=== PATIENT | female | born 1945 | race Caucasian/White ===

== ENCOUNTER → 2022-09-14 12:56 | Outpatient (BNVA) | payer OTHER, SELFPAY | PROVIDERS: PCP Neurological Surgery; Visit Provider Psychiatry & Neurology Neurology | DX: F03.90 Unspecified dementia, unspecified severity, without behavioral disturbance, psychotic disturbance, mood disturbance, and anxiety (principal); R41.89 Other symptoms and signs involving cognitive functions and awareness; R46.89 Other symptoms and signs involving appearance and behavior | CPT/HCPCS: 99202 ==

== ENCOUNTER 2022-10-03 13:35 | Outpatient (REF) | payer OTHER, SELFPAY ==
--- NOTE | ~2022-10-03 | MR_ITS ---
EXAMINATION: MR BRAIN WITHOUT CONTRAST CLINICAL INFORMATION: Other symptoms and signs involving cognitive function and awareness. COMPARISON: None available. TECHNIQUE: Multiplanar, multisequence imaging of the brain was performed without intravenous contrast. FINDINGS: There is no acute infarction, hemorrhage, mass, or extra-axial fluid collection. Moderate T2/FLAIR hyperintensity seen throughout the cerebral white matter, most typical of chronic microangiopathy. There is a chronic lacunar infarcts within the bilateral basal ganglia, left thalamus, and left cerebellum. Some prominent arachnoid granulations are seen along the occipital bone. A mild degree of brain parenchymal volume loss is seen with commensurate prominence of ventricles and sulci. There is no hydrocephalus. The major arterial flow voids are preserved at the skull base. Moderate degenerative changes are seen within the spine. There is mild to moderate spinal canal stenosis at the C4-C5 level related to disc osteophyte complex. The extracranial structures are within normal limits. MR/MR head/brain wo con IMPRESSION: No acute infarct, mass lesion, intracranial hemorrhage, or evidence of hydrocephalus. Chronic lacunar infarcts seen within the bilateral basal ganglia, left thalamus, and left cerebellum. Background changes of moderate chronic microangiopathy.
== END 2022-10-03 13:36 | disposition home or self-care (01) ==
LOC: HO.MRI 13:35
PROVIDERS: Visit Provider Psychiatry & Neurology Neurology
DX: R41.89 Other symptoms and signs involving cognitive functions and awareness (principal); R46.89 Other symptoms and signs involving appearance and behavior
CPT/HCPCS: 70551

== ENCOUNTER → 2022-12-04 08:14 | Outpatient (BNVA) | payer OTHER, SELFPAY | PROVIDERS: PCP Neurological Surgery; Visit Provider Nurse Practitioner Family | DX: F03.90 Unspecified dementia, unspecified severity, without behavioral disturbance, psychotic disturbance, mood disturbance, and anxiety (principal); R41.89 Other symptoms and signs involving cognitive functions and awareness; R46.89 Other symptoms and signs involving appearance and behavior | CPT/HCPCS: 99212 ==

== ENCOUNTER → 2023-01-03 19:30 | Outpatient (REF) | payer OTHER, SELFPAY | LOC: HO.SL 19:30 | PROVIDERS: Visit Provider Nurse Practitioner Family | DX: R06.83 Snoring (principal); G47.33 Obstructive sleep apnea (adult) (pediatric); G47.00 Insomnia, unspecified; E11.9 Type 2 diabetes mellitus without complications; F03.90 Unspecified dementia, unspecified severity, without behavioral disturbance, psychotic disturbance, mood disturbance, and anxiety; R41.89 Other symptoms and signs involving cognitive functions and awareness; R46.89 Other symptoms and signs involving appearance and behavior; I11.0 Hypertensive heart disease with heart failure; I50.9 Heart failure, unspecified; J44.9 Chronic obstructive pulmonary disease, unspecified | CPT/HCPCS: 95810 ==

== ENCOUNTER → 2023-02-07 08:54 | Outpatient (BNVA) | payer OTHER, SELFPAY | PROVIDERS: PCP Neurological Surgery; Visit Provider Nurse Practitioner Family | DX: G47.33 Obstructive sleep apnea (adult) (pediatric) (principal); G47.19 Other hypersomnia; R41.89 Other symptoms and signs involving cognitive functions and awareness; F03.90 Unspecified dementia, unspecified severity, without behavioral disturbance, psychotic disturbance, mood disturbance, and anxiety | CPT/HCPCS: 99212 ==

== ENCOUNTER 2023-04-23 14:29 | Outpatient (AMB) | payer OTHER, SELFPAY ==
[2023-04-23 14:30] VITALS: BP 118/62; PULSE 75; O2SAT 95; BMI 32.1
--- NOTE | 2023-04-23 14:30 | A.OFFVIS_ITS ---
Intake Vital Signs 04/23/23 14:30 Height 4 ft 11 in Weight 159 lb BMI 32.1 BP 118/62 Blood Pressure Location Lt brachial Position Sitting Pulse 75 Pulse Source Pulse Oximeter Pulse Oximetry (%) 95 Oxygen Delivery Method Room Air Intake Visit Reasons: 2m follow up dementia - Confirmed Intake Note: Pt presents as a 2 month f/u for dementia. Senior Cyber Intelligence Analyst Required: No Senior Cyber Intelligence Analyst Name: Daughter Accompanied by: Daughter Allergies No Known Allergies Allergy (Verified 04/23/23 14:35) HPI HPI Comments History of Present Illness Details 77 y/o female patient presents with her daughter for follow up of dementia. Pt's daughter reports that patient's cognitive function is a little better, feels more alert. She still has trouble remembering people, focusing, loses way easily (does not drive), loses things in her house, needs help with medications. She has visiting nurse and manages her medication, visit her house in the morning, 7 days a week. Pt goes to day program, from 8 am to 2:30 pm, but does not like to go. Pt is dependant on most ADLs Pt is on donepezil 10 mg and memantine 7 mg daily. Denies side effects. The PSG result was significant for mild degree of sleep apnea with increased severity in REM sleep. The AHI was 13/hr, REM AHI was 27/hr and oxygen momo was 80%. She started at APAP [id number]. Pt use it but only one hour at night. She feels more rested and sleeps well with CPAP, but having difficulty to manage the CPAP mask strap, it is hard to put back on after using bathroom. [facility] Medical History Asthma Breast cancer COPD (chronic obstructive pulmonary disease) Depression Diabetes Heart failure HTN (hypertension) Hyperlipidemia Insomnia Tobacco abuse Surgical History (Updated 04/23/23 @ 14:38 by Melissa Baker CMA) S/P eye surgery Family History Father Cancer Mother Cancer Social History (Updated 04/23/23 @ 14:39 by Melissa Baker CMA) Alcohol intake: former Patient Tobacco Use Status: Former Tobacco user Review of Systems Const All systems reviewed & are unremarkable except as noted in HPI and below Physical Exam Vital Signs: Last Vital Signs Pulse 75 04/23/23 14:30 BP 118/62 04/23/23 14:30 Pulse Ox 95 04/23/23 14:30 Oxygen Delivery Method Room Air 04/23/23 14:30 BMI result Body Mass Index 32.1 Const General: cooperative, comfortable and no acute distress Nutritional Appearance: average body habitus Limitations: no limitations HEENT Head: Yes normal to inspection Neuro General: tone normal, moves all extremities and no focal motor deficits Cranial nerves: Yes Bilaterally intact EOM present, Yes Nystagmus not present, Yes Normal facial strength present, Yes Midline tongue present and Yes Ability to bilaterally elevate shoulders present Cognition (Neuro): abnormal cognition Gait exam (Neuro): Antalgic gait present Motor exam (neuro): 5/5 motor strength present throughout and Normal motor muscle tone present throughout Deep tendon reflexes (DTR's): Right triceps reflex intensity grade: 2+, Left triceps reflex intensity grade: 2+, Rt Biceps (C5, C6): 2+, Left biceps reflex intensity grade: 2+, Right brachioradialis reflex intensity grade: 2+, Left brachioradialis reflex intensity grade: 2+, Right patellar reflex intensity grade: 2+ and Left patellar reflex intensity grade: 0 Assessment & Plan Assessment & Plan (1) Cognitive and behavioral changes: Code(s): R41.89 - Other symptoms and signs involving cognitive functions and awareness; R46.89 - Other symptoms and signs involving appearance and behavior (2) NEVILLE (obstructive sleep apnea): Code(s): G47.33 - Obstructive sleep apnea (adult) (pediatric) (3) Dementia: Comment: ? mixed or vascular Code(s): F03.90 - Unspecified dementia, unspecified severity, without behavioral disturbance, psychotic disturbance, mood disturbance, and anxiety Plan Advised patient to continue to take donepezil to 10 mg qHS. Increase memantine 14 mg daily. Continue to use APAP [id number]. Stressed compliance, use CPAP nightly and more than 4 hours. Discussed about compliance with medications and decrease risk factors. Medications: New memantine 14 mg PO DAILY 30 days 30 ea 3RF Discontinued memantine Discontinued Reason: Doctor's Order 7 mg PO DAILY 30 days 30 ea 1RF Coding Level of Care Code Est Pt Level 4 (55923) Diagnoses Cognitive and behavioral changes R41.89; R46.89 NEVILLE (obstructive sleep apnea) G47.33 Dementia F03.90
== END 2023-04-23 15:03 | disposition home or self-care (01) ==
PROVIDERS: Visit Provider Nurse Practitioner Family
DX: R41.89 Other symptoms and signs involving cognitive functions and awareness (principal); G47.33 Obstructive sleep apnea (adult) (pediatric); F03.90 Unspecified dementia, unspecified severity, without behavioral disturbance, psychotic disturbance, mood disturbance, and anxiety
CPT/HCPCS: 99214

== ENCOUNTER → 2023-04-23 14:29 | Outpatient (BNVA) | payer OTHER, SELFPAY | PROVIDERS: Visit Provider Nurse Practitioner Family | DX: R41.89 Other symptoms and signs involving cognitive functions and awareness (principal); R46.89 Other symptoms and signs involving appearance and behavior; G47.33 Obstructive sleep apnea (adult) (pediatric); F03.90 Unspecified dementia, unspecified severity, without behavioral disturbance, psychotic disturbance, mood disturbance, and anxiety | CPT/HCPCS: 99212 ==

== ENCOUNTER 2023-06-26 08:01 | Outpatient (AMB) | payer OTHER, SELFPAY ==
--- NOTE | 2023-06-26 08:06 | A.OFFVIS_ITS ---
Intake Vital Signs 06/26/23 08:13 Weight 156 lb 4 oz BP 130/80 Blood Pressure Location Lt brachial Position Sitting Pulse 66 Pulse Source Pulse Oximeter Pulse Oximetry (%) 96 Oxygen Delivery Method Room Air Intake Visit Reasons: f/u appt to requalify for CPAP - Confirmed Intake Note: Requalify for cpap Associate Civil Engineer Required: Yes Associate Civil Engineer Name: Yael daughter Allergies No Known Allergies Allergy (Verified 06/26/23 08:07) HPI HPI Comments History of Present Illness Details 77 y/o female patient presents for requa lify CPAP therapy to treat NEVILLE. The PSG result was significant for mild degree of sleep apnea with increased severity in REM sleep. The AHI was 13/hr, REM AHI was 27/hr and oxygen momo was 80%. She started at APAP [id number]. Pt states that her CPAP did not work, and fixed recently. Pt reports she was anxious with full face mask and did not use it consistently. PT also having difficulty to manage the CPAP mask strap at night and it is hard to put back on after using bathroom. Pt uses CPAP occasionally, but only one hour at night. However, pt feels more rested and sleeps well with CPAP, but Pt's daughter states that patient sleeps throughout the day, and not sleeping well at night. [facility] Medical History Insomnia Asthma Depression Hyperlipidemia Diabetes HTN (hypertension) Tobacco abuse COPD (chronic obstructive pulmonary disease) Heart failure Breast cancer Surgical History S/P eye surgery Family History Father Cancer Mother Cancer Social History (Updated 06/26/23 @ 08:13 by Tavia Manley CMA) Alcohol intake: former Patient Tobacco Use Status: Current everyday Tobacco user Review of Systems Const All systems reviewed & are unremarkable except as noted in HPI and below Physical Exam Vital Signs: Last Vital Signs Pulse 66 06/26/23 08:13 BP 130/80 06/26/23 08:13 Pulse Ox 96 06/26/23 08:13 Oxygen Delivery Method Room Air 06/26/23 08:13 Const General: cooperative, comfortable and no acute distress Nutritional Appearance: average body habitus Limitations: no limitations HEENT Head: Yes normal to inspection Neuro General: tone normal, moves all extremities and no focal motor deficits Cranial nerves: Yes Bilaterally intact EOM present, Yes Nystagmus not present, Yes Normal facial strength present, Yes Midline tongue present and Yes Ability to bilaterally elevate shoulders present Cognition (Neuro): abnormal cognition Gait exam (Neuro): Antalgic gait present Motor exam (neuro): 5/5 motor strength present throughout and Normal motor muscl e tone present throughout Deep tendon reflexes (DTR's): Right triceps reflex intensity grade: 2+, Left triceps reflex intensity grade: 2+, Rt Biceps (C5, C6): 2+, Left biceps reflex intensity grade: 2+, Right brachioradialis reflex intensity grade: 2+, Left brachioradialis reflex intensity grade: 2+, Right patellar reflex intensity grade: 2+ and Left patellar reflex intensity grade: 0 Assessment & Plan Assessment & Plan (1) Cognitive and behavioral changes: Code(s): R41.89 - Other symptoms and signs involving cognitive functions and awareness; R46.89 - Other symptoms and signs involving appearance and behavior (2) NEVILLE (obstructive sleep apnea): Code(s): G47.33 - Obstructive sleep apnea (adult) (pediatric) (3) Dementia: Comment: ? mixed or vascular Code(s): F03.90 - Unspecified dementia, unspecified severity, without behavioral disturbance, psychotic disturbance, mood disturbance, and anxiety Plan Advised patient to continue to take donepezil to 10 mg qHS. Pt wants to try CPAP again. Continue to use APAP [id number]. Advised patient to try to use CPAP when she is awake to get used to it, and use it when she takes a nap. Still, patient has good clinical effects from using CPAP. Stressed compliance, use CPAP nightly and more than 4 hours. Discussed about compliance with medications and decrease risk factors. Coding Level of Care Code Est Pt Level 3 (58578) Diagnoses Cognitive and behavioral changes R41.89; R46.89 NEVILLE (obstructive sleep apnea) G47.33 Dementia F03.90
[2023-06-26 08:13] VITALS: BP 130/80; PULSE 66; O2SAT 96
== END 2023-06-26 08:40 | disposition home or self-care (01) ==
PROVIDERS: PCP Neurological Surgery; Visit Provider Nurse Practitioner Family
DX: F03.918 Unspecified dementia, unspecified severity, with other behavioral disturbance (principal); R41.89 Other symptoms and signs involving cognitive functions and awareness; G47.33 Obstructive sleep apnea (adult) (pediatric)
CPT/HCPCS: 99213

== ENCOUNTER → 2023-06-26 08:01 | Outpatient (BNVA) | payer OTHER, SELFPAY | PROVIDERS: PCP Neurological Surgery; Visit Provider Nurse Practitioner Family | DX: G47.33 Obstructive sleep apnea (adult) (pediatric) (principal); R41.89 Other symptoms and signs involving cognitive functions and awareness; F03.90 Unspecified dementia, unspecified severity, without behavioral disturbance, psychotic disturbance, mood disturbance, and anxiety; Z79.899 Other long term (current) drug therapy | CPT/HCPCS: 99212 ==

== ENCOUNTER 2023-08-29 09:26 | Outpatient (AMB) | payer OTHER, SELFPAY ==
--- NOTE | 2023-08-29 09:45 | A.OFFVIS_ITS ---
Intake Vital Signs 08/29/23 09:46 Height 4 ft 11 in Weight 156 lb BMI 31.5 BP 126/84 Blood Pressure Location Rt brachial Position Sitting Intake Visit Reasons: Follow Up for dementia/ Confirmed granddaughter Intake Note: Patient presents for follow up dementia. Allergies No Known Allergies Allergy (Verified 08/29/23 09:47) HPI HPI Comments History of Present Illness Details 77 y/o female patient presents for follo w up of NEVILLE on CPAP and memory loss. Pt's in lab sleep study scheduled on 09/10/23 for CPAP re-qualification. Pt admitted to hospitalized for 5 days for RSV. Pt states that she restart using CPAP, feels much better to breath and sleeps well. She stopped smoking, used to smoke cigarette 2ppd. The CPAP compliance and therapy response (07/30/23-08/28/23) reviewed. She is on APAP [id number]. The usage days 50% and the average usage hours 4 hrs 30 min. The max pressure was 8.9 and the residual AHI was 4.3/hr. She is memantine 21 mg, and she can think clear, and memory has improved. [facility] Medical History Insomnia Asthma Depression Hyperlipidemia Diabetes HTN (hypertension) Tobacco abuse COPD (chronic obstructive pulmonary disease) Heart failure Breast cancer Surgical History S/P eye surgery Family History Father Cancer Mother Cancer Social History Alcohol intake: former Patient Tobacco Use Status: Current everyday Tobacco user Review of Systems Const All systems reviewed & are unremarkable except as noted in HPI and below Physical Exam Vital Signs: Last Vital Signs BP 126/84 08/29/23 09:46 BMI result Body Mass Index 31.5 Const General: cooperative, comfortable and no acute distress Nutritional Appearance: average body habitus Limitations: no limitations HEENT Head: Yes normal to inspection Neuro General: tone normal, moves all extremities and no focal motor deficits Cranial nerves: Yes Bilaterally intact EOM present, Yes Nystagmus not present, Yes Normal facial strength present, Yes Midline tongue present and Yes Ability to bilaterally elevate shoulders present Cognition (Neuro): abnormal cognition Gait exam (Neuro): Antalgic gait present Motor exam (neuro): 5/5 motor strength present throughout and Normal motor muscle tone present throughout Deep tendon reflexes (DTR's): Right triceps reflex intensity grade: 2+, Left triceps reflex intensity grade: 2+, Rt Biceps (C5, C6): 2+, Left biceps reflex intensity grade: 2+, Right brachioradialis reflex intensity grade: 2+, Left brachioradialis reflex intensity grade: 2+, Right patellar reflex intensity grade: 2+ and Left patellar reflex intensity grade: 0 Assessment & Plan Assessment & Plan (1) Cognitive and behavioral changes: Code(s): R41.89 - Other symptoms and signs involving cognitive functions and awareness; R46.89 - Other symptoms and signs involving appearance and behavior (2) NEVILLE (obstructive sleep apnea): Code(s): G47.33 - Obstructive sleep apnea (adult) (pediatric) (3) Dementia: Comment: ? mixed or vascular Code(s): F03.90 - Unspecified dementia, unspecified severity, without behavioral disturbance, psychotic disturbance, mood disturbance, and anxiety Plan Advised patient to continue to take donepezil to 10 mg qHS. Continue to use APAP [id number] as patient experiences good clinical effects, sleep quality has improved. Stressed compliance, use CPAP nightly and more than 4 hours. Increase memantine to 28 mg daily. Discussed about compliance with medications and decrease risk factors. Medications: New memantine 28 mg PO DAILY 90 ea 3RF 90 days Discontinued memantine Discontinued Reason: Doctor's Order 21 mg PO DAILY 30 days 30 ea 3RF Coding Level of Care Code Est Pt Level 4 (12958) Diagnoses Cognitive and behavioral changes R41.89; R46.89 NEVILLE (obstructive sleep apnea) G47.33 Dementia F03.90
[2023-08-29 09:46] VITALS: BP 126/84; BMI 31.5
== END 2023-08-29 10:07 | disposition home or self-care (01) ==
PROVIDERS: PCP Neurological Surgery; Visit Provider Nurse Practitioner Family
DX: F03.918 Unspecified dementia, unspecified severity, with other behavioral disturbance (principal); R41.89 Other symptoms and signs involving cognitive functions and awareness; G47.33 Obstructive sleep apnea (adult) (pediatric)
CPT/HCPCS: 99214

== ENCOUNTER → 2023-08-29 09:26 | Outpatient (BNVA) | payer OTHER, SELFPAY | PROVIDERS: PCP Neurological Surgery; Visit Provider Nurse Practitioner Family | DX: F03.90 Unspecified dementia, unspecified severity, without behavioral disturbance, psychotic disturbance, mood disturbance, and anxiety (principal); R41.89 Other symptoms and signs involving cognitive functions and awareness; R46.89 Other symptoms and signs involving appearance and behavior; G47.33 Obstructive sleep apnea (adult) (pediatric) | CPT/HCPCS: 99212 ==

== ENCOUNTER 2023-11-07 09:26 | Outpatient (AMB) | payer OTHER, SELFPAY ==
--- NOTE | 2023-11-07 09:44 | A.OFFVIS_ITS ---
Intake Vital Signs 11/07/23 09:50 Height 4 ft 11 in Weight 145 lb 4 oz BMI 29.3 BP 130/80 Blood Pressure Location Lt brachial Position Sitting Pulse 69 Pulse Source Pulse Oximeter Pulse Oximetry (%) 96 Oxygen Delivery Method Room Air Intake Visit Reasons: 4 mnts f/u for Sleep - CONF Intake Note: Patient presents for 4 month f/u. speech is delay and drags and very confuse at times Allergies No Known Allergies Allergy (Verified 11/07/23 09:48) HPI HPI Comments History of Present Illness Details 77 y/o female patient presents for follo w up of NEVILLE on CPAP and memory loss. Memantine increased to 28 mg at the last visit, no side effects. Pt's daughter reports that patient memory is stable, but still has some confusion. Pt's daughter found that patient takes NyQuil during daytime, and locked the medication box. 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 Pt states that she restart using CPAP, feels much better to breath and sleeps well, but forget to put it at night sometimes. She stopped smoking, used to smoke cigarette 2ppd. The CPAP compliance and therapy response (08/07/23-11/04/23) reviewed. She is on APAP [id number]. The usage days 66 % and the average usage hours 6 hrs 40 min. The max pressure was 9.1 and the residual AHI was 4.4/hr. [facility] Medical History Insomnia Asthma Depression Hyperlipidemia Diabetes HTN (hypertension) Tobacco abuse COPD (chronic obstructive pulmonary disease) Heart failure Breast cancer Surgical History S/P eye surgery Family History Father Cancer Mother Cancer Social History Alcohol intake: former Patient Tobacco Use Status: Current everyday Tobacco user Review of Systems Const All systems reviewed & are unremarkable except as noted in HPI and below Physical Exam Vital Signs: Last Vital Signs Pulse 69 11/07/23 09:50 BP 130/80 11/07/23 09:50 Pulse Ox 96 11/07/23 09:50 Oxygen Delivery Method Room Air 11/07/23 09:50 BMI result Body Mass Index 29.3 Const General: cooperative, comfortable and no acute distress Nutritional Appearance: average body habitus Limitations: no limitations HEENT Head: Yes normal to inspection Neuro General: tone normal, moves all extremities and no focal motor deficits Cranial nerves: Yes Bilaterally intact EOM present, Yes Nystagmus not present, Yes Normal facial strength present, Yes Midline tongue present and Yes Ability to bilaterally elevate shoulders present Cognition (Neuro): abnormal cognition Gait exam (Neuro): Antalgic gait present Motor exam (neuro): 5/5 motor strength present throughout and Normal motor muscle tone present throughout Deep tendon reflexes (DTR's): Right triceps reflex intensity grade: 2+, Left triceps reflex intensity grade: 2+, Rt Biceps (C5, C6): 2+, Left biceps reflex intensity grade: 2+, Right brachioradialis reflex intensity grade: 2+, Left brachioradialis reflex intensity grade: 2+, Right patellar reflex intensity grade: 2+ and Left patellar reflex intensity grade: 0 Assessment & Plan Assessment & Plan (1) Cognitive and behavioral changes: Code(s): R41.89 - Other symptoms and signs involving cognitive functions and awareness; R46.89 - Other symptoms and signs involving appearance and behavior (2) NEVILLE (obstructive sleep apnea): Code(s): G47.33 - Obstructive sleep apnea (adult) (pediatric) (3) Dementia: Comment: ? mixed or vascular Code(s): F03.90 - Unspecified dementia, unspecified severity, without behavioral disturbance, psychotic disturbance, mood disturbance, and anxiety Plan Advised patient to continue to take donepezil to 10 mg qH, and memantine to 28 mg daily. Continue to use APAP [id number] as patient experiences good clinical effects, sleep quality has improved. Stressed compliance, use CPAP nightly and more than 4 hours. Discussed about compliance with medications and decrease risk factors. Coding Level of Care Code Est Pt Level 4 (55325) Diagnoses Cognitive and behavioral changes R41.89; R46.89 NEVILLE (obstructive sleep apnea) G47.33 Dementia F03.90
[2023-11-07 09:50] VITALS: BP 130/80; PULSE 69; O2SAT 96; BMI 29.3
== END 2023-11-07 10:11 | disposition home or self-care (01) ==
PROVIDERS: PCP Neurological Surgery; Visit Provider Nurse Practitioner Family
DX: F03.90 Unspecified dementia, unspecified severity, without behavioral disturbance, psychotic disturbance, mood disturbance, and anxiety (principal); R41.89 Other symptoms and signs involving cognitive functions and awareness; G47.33 Obstructive sleep apnea (adult) (pediatric)
CPT/HCPCS: 99214

== ENCOUNTER → 2023-11-07 09:26 | Outpatient (BNVA) | payer OTHER, SELFPAY | PROVIDERS: PCP Neurological Surgery; Visit Provider Nurse Practitioner Family | DX: R41.89 Other symptoms and signs involving cognitive functions and awareness (principal); R46.89 Other symptoms and signs involving appearance and behavior; G47.33 Obstructive sleep apnea (adult) (pediatric); F03.90 Unspecified dementia, unspecified severity, without behavioral disturbance, psychotic disturbance, mood disturbance, and anxiety | CPT/HCPCS: 99212 ==

== ENCOUNTER 2024-07-04 13:43 | Outpatient (AMB) | payer OTHER, SELFPAY ==
[2024-07-04 13:55] VITALS: BMI 28.5
--- NOTE | 2024-07-04 13:55 | MHC.OFFVIS ---
Vital Signs 07/04/24 13:55 Height 4 ft 11 in Weight 141 lb BMI 28.5 Intake Visit Reasons: Worsening dementia Intake Note: Patient presents for follow up. changes in apettite, sleeping a lot more and loosing weight. Allergies No Known Allergies Allergy (Verified 11/07/23 09:48) HPI Comments Details: 78-yr-old female presents for f/u visit for sleep d/o and cognitive diff. Pt is accompanied by her dtr and grn-dtr. Pt lives in senior housing apartment- alone w/ CAPTAIN WAITER/WAITRESS services. Pt's dtr is concerned that pt is not eating as much. She seems to just forget to eat. Pt loves to drink coffee. Pt is now sleeping excessively, but often asks to have her sleep medications increased. Pt is not using her CPAP, as she does not know to apply the mask. She did a sleep study at [facility] in Apr- however she did not sleep well. Her memory is worse overall, she may think her dtr is her grand-dtr. Her dtr needs to manage her finances. However, pt's family has put cameras in pt's home, [facility] Medical History Insomnia Asthma Depression Hyperlipidemia Diabetes HTN (hypertension) Tobacco abuse COPD (chronic obstructive pulmonary disease) Heart failure Breast cancer Surgical History S/P eye surgery Family History Father Cancer Mother Cancer Social History Alcohol intake: former Patient Tobacco Use Status: Current everyday Tobacco user Physical Exam Vital Signs: BMI result Body Mass Index 28.5 Const General: cooperative and no acute distress Orientation/consciousness: oriented to person Resp Effort & Inspection: normal respiratory effort and able to speak in complete sentences Neuro Other: MMSE score actually 17/29- repeat phrase omited as it does not translate to [place] well. General: oriented to person, gait normal and moves all extremities Cranial nerves: Yes CN's II-XII intact bilaterally Motor exam (neuro): 5/5 motor strength present throughout Psych Appearance: grossly normal Affect: normal affect Attitude: cooperative Orientation Where are we (state) (county) (town or city) (hospital) (floor)?: town or city, hospital/clinic and floor Registration Name of 3 unrelated objects clearly and slowly, then ask patient to repeat all 3 of them. (1st repeat determines score. Make sure they can repeat all three): object 1, object 2 and object 3 Attention & Calculation (CHOOSE ONE) Spell WORLD backwards (DLROW): 3 letters Language Show patient a wristwatch & ask what it is. Repeat for pencil.: watch and pencil Ask the patient to repeat the phrase 'No ifs, ands, or buts' after you.: incorrect Ask the patient to 'take a piece of paper with their right hand' 'fold paper in half' 'place paper on floor': take paper in right hand, fold paper in half and place paper on floor Print the sentence 'CLOSE YOUR EYES' on a piece. If patient actually closes eyes then score.: followed written direction Give patient a blank piece of paper & ask to write a sentence. Score if it contains a noun & verb.: sentence contains subject and verb Ask patient to copy figure of intersecting pentagons exactly. Score if all 10 angles & 2 intersects are included.: all 10 angles present & 2 are intersected Score Score: 17 Assessment & Plan Assessment & Plan (1) Dementia: Comment: ? mixed or vascular Code(s): F03.90 - Unspecified dementia, unspecified severity, without behavioral disturbance, psychotic disturbance, mood disturbance, and anxiety Category: Medical (2) NEVILLE (obstructive sleep apnea): Code(s): G47.33 - Obstructive sleep apnea (adult) (pediatric) Category: Medical Plan For dementia: Continue Donepazil 10mg qhs. Continue Memantne ER 28mg po qd. Pt's cognition may be benefited from a gradual dose reduction of her sleep hypnotics- pt is f/b psychiatry. Pt would benefit from living in a more supportive setting, such as a memory care unit in [facility]. Pt and family are interested in [facility]. Pt encouraged to increase regular physical, social, and cognitively stimulating activities. For NEVILLE: Will order HST- to requalify pt for CPAP use. [facility] phone- [phone], fax [phone] Coding Level of Care Code Est Pt Level 4 (48855) Diagnoses Dementia F03.90 NEVILLE (obstructive sleep apnea) G47.33
== END 2024-07-04 15:20 | disposition home or self-care (01) ==
PROVIDERS: PCP Neurological Surgery; Visit Provider Nurse Practitioner Family
DX: F03.90 Unspecified dementia, unspecified severity, without behavioral disturbance, psychotic disturbance, mood disturbance, and anxiety (principal); G47.33 Obstructive sleep apnea (adult) (pediatric)
CPT/HCPCS: 99214

== ENCOUNTER → 2024-07-04 13:43 | Outpatient (BNVA) | payer OTHER, SELFPAY | PROVIDERS: PCP Neurological Surgery; Visit Provider Nurse Practitioner Family | DX: F03.90 Unspecified dementia, unspecified severity, without behavioral disturbance, psychotic disturbance, mood disturbance, and anxiety (principal); G47.33 Obstructive sleep apnea (adult) (pediatric) | CPT/HCPCS: 99212 ==

== ENCOUNTER → 2024-10-08 09:30 | Outpatient (BNVA) | payer OTHER, SELFPAY | PROVIDERS: PCP Neurological Surgery; Visit Provider Nurse Practitioner Family | DX: G47.19 Other hypersomnia (principal); G47.33 Obstructive sleep apnea (adult) (pediatric); F03.90 Unspecified dementia, unspecified severity, without behavioral disturbance, psychotic disturbance, mood disturbance, and anxiety; R06.83 Snoring | CPT/HCPCS: 99212 ==

== ENCOUNTER 2025-01-06 13:26 | Outpatient (AMB) | payer OTHER, SELFPAY ==
[2025-01-06 13:30] VITALS: BP 150/80; PULSE 68; O2SAT 96; BMI 30.3
--- NOTE | 2025-01-06 13:30 | MHC.OFFVIS ---
Vital Signs 01/06/25 13:30 Height 4 ft 11 in Weight 150 lb BMI 30.3 BP 150/80 H Blood Pressure Location Rt brachial Position Sitting Pulse 68 Pulse Source Pulse Oximeter Pulse Oximetry (%) 96 Oxygen Delivery Method Room Air Intake Visit Reasons: 6 mo follow up Intake Note: Patient presents month follow up for NEVILLE. Non compliant with CPAP. Pricing Strategist Required: No Accompanied by: Daughter Allergies No Known Allergies Allergy (Verified 01/06/25 13:33) Medication List - Last Reconciled 01/06/25 by DICKSON Monreal albuterol sulfate 90 mcg/actuation 2 puffs inhalation Q4H PRN alcohol swabs (Alcohol Pads) pad topical QID alendronate 70 mg PO QWEEK aspirin 81 mg PO DAILY atorvastatin 20 mg PO DAILY brimonidine 0.2% 0 drps ophthalmic (eye) budesonide-formoterol 160-4.5 mcg/actuation 2 puffs inhalation BID carboxymethylcellulose sodium 0.5% 1 drp ophthalmic (eye) QID clonazepam 1 mg PO BEDTIME PRN clorazepate dipotassium 7.5 mg PO BID PRN diclofenac sodium 1% grams topical donepezil 10 mg PO BEDTIME dulaglutide (Trulicity) 0.75 mg subcut QWEEK eszopiclone 1 mg PO BEDTIME PRN lancets (FreeStyle Lancets) As directed lisinopril 5 mg PO DAILY memantine 28 mg PO DAILY 90 days mirtazapine 15 mg PO BEDTIME quetiapine 12.5 mg (1/2 x 25 mg) PO BEDTIME 30 days MDD 25mg sennosides (senna) 8.6 mg PO DAILY sertraline 75 mg PO DAILY sertraline 100 mg PO DAILY umeclidinium-vilanterol 62.5-25 mcg/actuation (Anoro Ellipta) 1 ea inhalation DAILY HPI Comments Details: 79-yr-old female presents for f/u visit for sleep d/o and cognitive diff. Pt is accompanied by her dtr, Yael. During today's visit, daughter expressed concern that prior to the last visit, both she and patient's nurse had called the office with concerns, and this provider responded to the nurse and not herself. Apologized to patient's daughter that this provider thought that the conversation with the nurse was to be relayed to the patient's daughter, however the daughter stated she expected this provider to call back both the nurse and herself. Again expressed my apologies for this misunderstanding, and assured that moving forward will call the daughter back directly. Since, the last visit, I spoke w/ psychiatric provider- and we agreed to trial pt on low-dose quetiapine, which pt has started and is tolerating well- and her mood is a little better. She has a mental health appointment w/ dtr tomorrow. Patient is doing a bit better. She continues to live alone w/ support. Her mood is better, however can be sad r/t her son being incarcerated. Denies any recent signs of infection, fever. Pt lives in senior housing apartment. Continues to have nurse services for a.m. and p.m. for med administration. Pt patient can still be sleepy. Pt is not using her CPAP- does not keep it on. Dtr asked that reuqest for f/u sleep study be cancelled- as pt will not tolertae it. She falls asleep after taking the quetiapine 7pm, which helps her sleep until 12-1am, but then she wakes up and walks around her apartment. Dtr notes patient is prone to ruminating thoughts. Patient herself states her memory is okay. Daughter and granddaughter state that patient does repeat herself, can be forgetful. Patient is only cooking when someone is with her. Patient needs help to manage her finances- daughter is trying to see if the granddaughter or another person can help her with this, as managing her finances often leads to arguments. Almost all of patient's bills are on auto pay, however her rent can not be paid this way. Daughter did have a camera in the patient's home, however patient found it and broke it. [facility] Medical History Insomnia Asthma Depression Hyperlipidemia Diabetes HTN (hypertension) Tobacco abuse COPD (chronic obstructive pulmonary disease) Heart failure Breast cancer Surgical History S/P eye surgery Family History Father Cancer Mother Cancer Social History Alcohol intake: former Patient Tobacco Use Status: Current everyday Tobacco user Physical Exam Vital Signs: Last Vital Signs Pulse 68 01/06/25 13:30 BP 150/80 H 01/06/25 13:30 Pulse Ox 96 01/06/25 13:30 Oxygen Delivery Method Room Air 01/06/25 13:30 BMI result Body Mass Index 30.3 Const General: cooperative and no acute distress Resp Effort & Inspection: normal respiratory effort and able to speak in complete sentences Neuro Other: Alert to person w/ STM losses. General: gait normal and moves all extremities Cranial nerves: Yes CN's II-XII intact bilaterally Motor exam (neuro): 5/5 motor strength present throughout Psych Appearance: grossly normal Affect: normal affect Attitude: cooperative Assessment & Plan Assessment & Plan (1) Dementia: Comment: ? mixed or vascular Code(s): F03.90 - Unspecified dementia, unspecified severity, without behavioral disturbance, psychotic disturbance, mood disturbance, and anxiety Category: Medical (2) NEVILLE (obstructive sleep apnea): Code(s): G47.33 - Obstructive sleep apnea (adult) (pediatric) Category: Medical Plan For dementia: Continue Donepazil 10mg qhs. Continue Memantne ER 28mg po qd. Increase quetiapine from 12.5mg q7pm to 25mg qhs. May take extra 1/2 tab (12.5mg) per day prn. Pt patient advised that she does need increased support, such as with her finance and medication management. As patient continues to live alone, encourage patient and daughter to reinstate all cameras to monitor patient. Continue to engage in regular physical, social, and cognitively stimulating activities. Previously reviewed strategies with daughter and granddaughter to reduce risk for increasing agitation and to deescalate agitation when present, such as distraction, avoiding direct confrontation and reality orientation, and as long as patient is safe, caregiver should step away in re-approached once patient is calm. Discussed with patient's daughter, that it is not uncommon for people with dementia to have personality changes, be resistive or argumentative with family members, especially those closest to them. For NEVILLE: May hold CPAP therapy and follow-up sleep study orders. Patient is not interested in using CPAP machine at this point, and her sleep apnea is mild, therefore we can hold this. Medications: Changed From quetiapine may take 1 extra 12.5mg dose qam for agitation. 12.5 mg (1/2 x 25 mg) PO BEDTIME 30 days 30 tabs 2RF MDD 25mg To quetiapine may take 1 extra 12.5mg dose qam for agitation. 25 mg PO BEDTIME 30 days 45 tabs 4RF MDD 25mg From donepezil 10 mg PO BEDTIME 30 tabs 3RF To donepezil 10 mg PO BEDTIME 30 days 30 tabs 6RF Coding Level of Care Code Est Pt Level 4 (02253) Diagnoses Dementia F03.90 NEVILLE (obstructive sleep apnea) G47.33
--- OUTSIDE RECORDS SUMMARY | 2025-01-06 16:23 | XMS_ITS | Data Portability ---
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 Plan of Treatment Reminders Order Date Submit Date Provider Last Modified By Organization Details Last Modified Time Details Appointments None recorded. Lab rapid SARS CoV 2 Ag, QL IA, respiratory specimen 2023 024 [facility], [address] [place] [address], [id number] 12:20:19 rapid flu (A+B) [address] [place] [address], [address] [place] [address], [id number] 4 12:20:17 urinalysis, dipstick [address] [place] [address], [phone] 4 12:22:43 Referral None recorded. Procedures None recorded. Surgeries None recorded. Imaging None recorded. Medication Orders None recorded. Patient TargetsNo targets recorded. Patient InstructionsNo instructions recorded. Reason for Referral None Reported. Results Created Date Observation Date Name Description Value Unit Range Abnormal Flag Note LastModifiedBy Organization Detail LastModifiedTime 04/27/2004/27/2024 urina lysis , dipst ick Leukocytes Negati ve Not Available [facility] ed [address] [place] [address], [phone] 04/27/2024 12:18:30 04/27/20 24 04/27/2024 urina lysis , dipst ick Nitrite negati ve Not Available [facility] ed [address] [place] [address], [phone] 04/27/2024 12:18:30 04/27/20 24 04/27/2024 urina lysis , dipst ick Urobilinogen Negati ve Not Available [facility] [address] [place] [address], [phone] 04/27/2024 12:18:30 04/27/20 24 04/27/2024 urina lysis , dipst ick Protein Negati ve Not Available Main - [facility] [address] [place] [address], [phone] 04/27/2024 12:18:30 04/27/20 24 04/27/2024 urina lysis , dipst ick pH 6.0 Not Available Main - [facility] [address] [place] [address], [phone] 04/27/2024 12:18:30 04/27/20 24 04/27/2024 urina lysis , dipst ick Blood Negati ve Not Available Main - [facility] [address] [place] [address], [phone] 04/27/2024 12:18:30 04/27/20 24 04/27/2024 urina lysis , dipst ick Specific Mather 1.005 Not Available [facility] - [facility] [address] [place] [address], [phone] 04/27/2024 12:18:30 04/27/20 24 04/27/2024 urina lysis , dipst ick Ketone Negati ve Not Available Main - [facility] [address] [place] [address], [phone] 04/27/2024 12:18:30 04/27/20 24 04/27/2024 urina lysis , dipst ick Bilirubin Negati ve Not Available Main - [facility] [address] [place] [address], [phone] 04/27/2024 12:18:30 04/27/20 24 04/27/2024 urina lysis , dipst ick Glucose Negati ve Not Available Main - [facility] [address] [place] [address], [phone] 04/27/2024 12:18:30 04/27/20 24 04/27/2024 urina lysis , dipst ick Appearance clear Not Available Main - [facility] [address] [place] [address], [phone] 04/27/2024 12:18:30 04/27/20 24 04/27/2024 urina lysis , dipst ick Color Negati ve Not Available Main - [facility] [address] [place] [address], [phone] 04/27/2024 12:18:30 04/27/20 24 04/27/2024 rapid SARS CoV 2 Ag, QL IA, respi rator y speci men rapid SARS CoV 2 Ag, QL IA, respiratory specimen negati ve Not Available [facility] ed [address] [place] [address], [phone] 04/27/2024 12:17:51 04/27/20 24 04/27/2024 rapid flu (A+B) Flu negati ve Not Available [address], [phone] 04/27/2024 12:17:54 Result Notes None recorded. Medical Equipment None Reported. Allergies No known drug allergies Medications Name Sig Start Date Stop Date Status Note LastModified by Organization Details LastModified Time latanoprost 0.005 % eye drops Instill 1 drop in both eyes at bedtime active Not Available Not Available N ot Available prednisone 10 mg tablet TAKE 4 TABLETS BY MOUTH ONCE DAILY FOR 2 DAYS; 3 TABLETS DAILY FOR 2 DAYS; 2 TABLETS DAILY FOR 2 DAYS; 1 TABLET DAILY x2 active Not Available Not Available No t Available atorvastatin 20 mg tablet TAKE 1 TABLET BY MOUTH ONCE DAILY active Not Available Not Available No t Available nicotine 14 mg/24 hr daily transdermal patch APPLY 1 PATCH TOPICALLY EVERY 24 HOURS active Not Available Not Available No t Available ipratropium 0.5 mg-albuterol 3 mg (2.5 mg base)/3 mL nebulization soln INHALE THE CONTENT OF 1 VIAL (3mls) VIA NEBULIZER machine 4 (FOUR) TIMES DAILY NEEDED FOR SHORTNESS OF BREATH OR FOR WHEEZING active Not Available Not Available No t Available albuterol sulfate 2.5 mg/3 mL (0.083 %) solution for nebulization INHALE THE CONTENT OF 1 VIAL (3mls) VIA NEBULIZER EVERY 4 HOURS NEEDED FOR SHORTNESS OF BREATH active Not Available Not Available No t Available azithromycin 250 mg tablet TAKE 250 MG BY MOUTH DAILY 2 TABS ON DAY 1, THEN 1 TAB DAILY active Not Available Not Available No t Available benzonatate 200 mg capsule TAKE 1 CAPSULE BY MOUTH 3 (THREE) TIMES A DAY NEEDED FOR COUGH active Not Available Not Available No t Available senna 8.6 mg tablet TAKE 2 TABLETS BY MOUTH ONCE DAILY AT BEDTIME NEEDED FOR CONSTIPATIO N active Not Available Not Available No t Available donepezil 10 mg tablet TAKE 1 TABLET BY MOUTH ONCE DAILY AT BEDTIME active Not Available Not Available No t Available prednisone 20 mg tablet TAKE 2 TABLETS BY MOUTH DAILY active Not Available Not Available Not Available alendronate 70 mg tablet TAKE 1 TABLET BY MOUTH ONCE A WEEK ON AN EMPTY STOMACH WITH A FULL GLASS OF WATER. REMAIN UPRIGHT FOR AT LEAST 30 MINUTES. active Not Available Not Available No t Available Alcohol Pads USE TO TEST FINGER STICK BLOOD SUGAR BEFORE MEALS AND AT BEDTIME active Not Available Not Available N ot Available sertraline 100 mg tablet Take 1 tablet by mouth every morning active Not Available Not Available No t Available clonazepam 1 mg tablet TAKE 1 TABLET BY MOUTH ONCE DAILY NEEDED FOR SEVERE ANXIETY active Not Available Not Available No t Available aspirin 81 mg tablet,delay ed release TAKE 1 TABLET BY MOUTH ONCE DAILY active Not Available Not Available No t Available acetaminophe n ER 650 mg tablet,exten ded release TAKE 2 TABLETS BY MOUTH EVERY 8 HOURS NEEDED FOR FEVER OR PAIN active Not Available Not Available No t Available carboxymethy lcellulose sodium 0.5 % eye drops INSTILL 1 DROP IN EACH EYE 4 (FOUR) TIMES DAILY active Not Available Not Available Not Available benzonatate 100 mg capsule TAKE 1 CAPSULE BY MOUTH 3 (THREE) TIMES A DAY FOR 7 DAYS active Not Available Not Available N ot Available doxycycline monohydrate 100 mg capsule TAKE 1 CAPSULE BY MOUTH two (2) times a day FOR 7 DAYS active Not Available Not Available No t Available cephalexin 500 mg capsule TAKE 1 CAPSULE BY MOUTH two (2) times a day FOR 7 DAYS active Not Available Not Available No t Available mirtazapine 30 mg tablet Take 1 tablet by mouth at bedtime active Not Available Not Available No t Available fluoromethol one 0.1 % eye drops,suspen alfonso Instill 1 drop in both eyes twice a day active Not Available Not Available Not Available brimonidine 0.2 % eye drops Instill 1 drop in both eyes twice a day active Not Available Not Available Not Available Ear Drops (carbamide peroxide) 6.5 % Place 5 Drops into both ears 2 times daily for 10 days. Tilt head so ear to be treated points towards the ceiling. Hold medication in ear using part of a cotton ball. active Not Available Not Available No t Available lisinopril 5 mg tablet TAKE 1 TABLET BY MOUTH ONCE DAILY active Not Available Not Available No t Available mirtazapine 15 mg tablet TAKE 1 TABLET BY MOUTH AT BEDTIME active Not Available Not Available No t Available albuterol sulfate HFA 90 mcg/actuatio n aerosol inhaler INHALE 2 PUFFS BY MOUTH INTO THE lungs EVERY 4 HOURS NEEDED FOR COUGH, FOR WHEEZING, OR FOR SHORTNESS OF BREATH active Not Available Not Available No t Available metformin ER 500 mg tablet,exten ded release 24 hr TAKE 1 TABLET BY MOUTH two (2) times a day take with food active Not Available Not Available No t Available sertraline 50 mg tablet TAKE 1 & 1/2 TABLETS BY MOUTH EVERY MORNING active Not Available Not Available No t Available loratadine 10 mg tablet TAKE 1 TABLET BY MOUTH ONCE DAILY active Not Available Not Available No t Available amoxicillin 875 mg-potassium clavulanate 125 mg tablet TAKE 1 TABLET BY MOUTH EVERY TWELVE HOURS FOR 7 DAYS active Not Available Not Available No t Available nicotine 7 mg/24 hr daily transdermal patch APPLY 1 PATCH TOPICALLY ONCE DAILY active Not Available Not Available N ot Available azithromycin 500 mg tablet TAKE 1 TABLET BY MOUTH ONCE DAILY active Not Available Not Available No t Available eszopiclone 3 mg tablet Take 1 tablet by mouth at bedtime as needed for insomnia active Not Available Not Available No t Available eszopiclone 2 mg tablet Take 1 tablet by mouth at bedtime as needed for insomnia active Not Available Not Available No t Available FreeStyle Lite Meter kit USE TO TEST FINGER STICK BLOOD SUGAR two (2) times a day active Not Available Not Available No t Available FreeStyle Lite Strips USE TO TEST FINGER STICK BLOOD SUGAR BEFORE MEALS AND AT BEDTIME active Not Available Not Available N ot Available Lanosmin Solrickar U-100 Insulin 100 unit/mL (3 mL) subcutaneous pen INJECT 15 UNITS UNDER THE SKIN ONCE DAILY AT BEDTIME active Not Available Not Available N ot Available brimonidine 0.2 %-timolol 0.5 % eye drops Instill 1 drop in both eyes twice a day active Not Available Not Available Not Available memantine 14 mg capsule sprinkle,ext ended release 24hr TAKE 1 CAPSULE BY MOUTH ONCE DAILY active Not Available Not Available No t Available memantine 21 mg capsule sprinkle,ext ended release 24hr TAKE 1 CAPSULE BY MOUTH ONCE DAILY active Not Available Not Available No t Available memantine 28 mg capsule sprinkle,ext ended release 24hr TAKE 1 CAPSULE BY MOUTH ONCE DAILY active Not Available Not Available No t Available Anoro Ellipta 62.5 mcg-25 mcg/actuatio n powder for inhalation INHALE 1 PUFF BY MOUTH INTO THE lungs ONCE DAILY active Not Available Not Available N ot Available Trulicity 0.75 mg/0.5 mL subcutaneous pen injector INJECT 0.75 MG SUBCUTANEOU SLY EVERY 7 DAYS active Not Available Not Available No t Available Lactobacillu s acidophilus 100 mg (1 billion cell) capsule TAKE 1 CAPSULE BY MOUTH ONCE DAILY active Not Available Not Available No t Available Trulance 3 mg tablet TAKE 1 TABLET BY MOUTH ONCE DAILY active Not Available Not Available No t Available True Comfort Lancet 30 gauge USE TO TEST FINGER STICK BLOOD SUGAR BEFORE MEALS AND AT BEDTIME active Not Available Not Available N ot Available Trelegy Ellipta 200 mcg-62.5 mcg-25 mcg powder for inhalation INHALE 1 PUFF BY MOUTH INTO THE lungs ONCE DAILY active Not Available Not Available N ot Available Vitals Date Recorded Body temperature Oxygen saturation Oxygen saturation in Arterial blood by Pulse oximetry Heart rate Respiratory rate Systolic blood pressure Diastolic blood pressure Systolic blood pressure Diastolic blood pressure Provider Name and Address Organization Details Last Updated DateTime 4 97.6 [degF] 95 % 95 % 79 /min 16 /min 180 mm[Hg] 87 mm[Hg] 155 mm[Hg] 72 mm[Hg] Not Available [employer] - production 4 12:16:27 Social History None recorded. Functional Status None recorded. Mental Status None recorded. Family History Nothing Reported. Medical History No medical history recorded. Gynecological HistoryNo gynecological history recorded. Obstetrics History GPAL:G 0 P 0 0 0 0 Past Encounters Encounter ID Performer Location Encounter Start Date Encounter Closed Date Diagnosis/Indication Diagnosis SNOMED-CT Code Diagnosis ICD10 Code Diagnosis Note [id number] AMANDA HAYNES MD [facility] - [facility] [address] [place] [phone] 04/27/2024 12:15:56 04/27/2024 22:27:02 Community acquired pneumonia [id number] J18.9 As noted, we were called to see this patient regarding concerns of increased confusion. The field evaluation was performed by my truck crane operator helper colleague. As noted above, I provided real-time direction and supervisio n for this visit. The evaluation revealed a 78-year-ol d female with a history of dementia who was seen by a new VNA yesterday, which raised concerns for increased confusion (VNA not familiar with the patient per family today). The patient? s daughter and granddaugh veronica/FEDERAL DISTRICT CLERK were present for the visit. The patient was seen at [facility] yesterday for a cough and was diagnosed with pneumonia. She was prescribed Augmentin, doxycyclin e, and benzonatat e. The family reports a history of UTIs and would like the urine tested. The patient is alert to baseline per the family. The family denies fever, chills, chest pain, shortness of breath, nausea, vomiting, diarrhea, or confusion different from baseline. BP slightly elevated at 155/72, afebrile, RR 16, SpO2 95% on room air.Exam with baseline mental status, lower left rales , no wheezing. Benign abdominal exam. No lower extremity edema.Rapi d COVID and flu: negative.U rinalysis: bland. Impression :Community acquired Pneumonia on Augmentin and Doxy since yesterday Plan:Commu nity acquired pneumonia- Daughter and granddaugh ter report that the patient? s mental status is at baseline.- Continue Augmentin and doxycyclin e that were given to her during the visit at urgent care.-Cont inue Johana Jason.-Re d flags were discussed with the family. Primary care, consider__ _ Dispositio n: We discussed the diagnostic uncertaint y of home visits and the risk associated with this. In this case, the patient and I felt this to be an acceptable and reasonable amount of risk given the benefit of avoiding an ED visit. We discussed the need to seek care urgently/e mergently in the setting of any new or worsening serious symptoms, particular ly fever, chills, CP, SOB, worsening cough, N/V/D , inability to tolerate PO, weakness, altered mental status or any other concerns. Health Concerns Section Related Observation LastModified by Organization Detai ls LastModified Time None Recorded Concern Status LastModified by Organization Details LastModified Time None Recorded Advance Directives Directive None Recorded Payers Encounter Date Sequence Insurance Name Policy Number Policy Hayes Covered Member ID Hayes Member ID Guarantor Name 04/27/2024 1 [facility] - DOS ON OR AFTER 2022 - DUAL ELIGIBLE - JAIL OPTIONS AND ONE CARE (MEDICARE REPLACEMENT/ADV ANTAGE - HMO) Anamika Pradhan [id number] Anamika Pradhan Notes Date Note Type Note Provider Name and Address Organization Details Recorded Time 04/27/2024 text/html [facility] Nurse Triage Notes (Laureano Gallagher): Reason For Request: PT increased confusion Chief Complaints: Altered Mental Status Allergies: Unknown Comments: Snack Stewardess verified the member's name//address and phone number. Mbr's VNA from [facility], mata stating mbr has hx of dementia & has increased confusion from baseline. VNA reports daughter called in yesterday to report altered mental status. VNA saw mbr today and reports mbr is only alert to person, which is a change from her baseline. Mbr is currently being treated from pneumonia, but does have hx of frequent UTIs. Education provided on the response time and the member was advised to monitor reported s/s and seek emergency treatment if needed -Jennifer Gallagher RN Certified Ophthalmic Technician Organization Information for [facility] [employer] Legal Name: [facility] Address: [address] [place] [address], College Teacher: Jose Guadalupe Eagle MD [facility] No.: [id number] Certified Ophthalmic Technician POC Test Results from [facility] Urine Dipstick (12:07:08) Urine leukocytes: - GUNJAN Urine nitrites: - NIT Urine urobilinogen: - URO Urine protein: - PRO Urine pH: 6.0 pH Urine blood: - BLO Urine specific gravity: 1.005 SG Urine ketones: - KET Urine bilirubin: - SYD Urine glucose: - GLU Rapid COVID antigen (12:07:12) COVID: - Rapid influenza antigen (12:07:13) Flu: - .................... .................... .................... .................... .................... .................... .................... . Certified Ophthalmic Technician Note From [facility]: VNA called for visit reporting increased confusion. VNA not present at visit. Pt? s daughter and GD/FEDERAL DISTRICT CLERK are present for visit. Pt was seen at [facility] [place] yesterday for cough, dx with PNA, rx augmentin, doxy and benzonatate. Family reports hx of UTI? s and would like the urine tested. Pt is alert to baseline per family, NAD. VSS. Afebrile. Non focal neuro exam. Normal gait. Lower left rales c/w PNA, no wheezing. Benign ABD exam. No LE edema. Rapid covid and flu negative. Unremarkable UA. Family instructed to continue prescriptions and to f/u with PCP next week. Red flags reviewed. .................... .................... .................... .................... .................... .................... .................... . Disposition: Fulfilled AMANDA HAYNES MD [address] [facility],[address], [place], [phone], [employer] 04/27/2024 20:21:34 OBGyn Episode No OBEpisode recorded.
--- OUTSIDE RECORDS SUMMARY | 2025-01-06 16:23 | XMS_ITS | Data Portability ---
Author Organization MD - [facility], [facility]- Address [address] [place] [address] Care Team Providers Care Supervisor [employer] Name Role Phone TEA LMA Primary Care Provider TEA LAM Referring Provider Assessment Encounter Date Assessment Date Assessment LastModified by Organization Details LastModified Time 04/17/2018 04/17/2018 Left more than right knee pain and OA. Left knee cortisone 2014. Seen in past. Now more pain. No injury. New xrays: Mild right knee OA. Marked left knee OA. Her symptoms in the left knee are consistent with OA. She has radiating pain in the right leg. She has seen Dr Prado. More consistent with lumbar radiculopathy. She declined injection of her knee. Plan: PT. Re visit with Dr Prado re her spine. If more knee specific pain, she will call for cortisone to her knee--she declined today. [email or web address] Not available 04/17/2018 19:50:41 06/12/2018 06/12/2018 The clinical presentation is consistent with right knee pain, ?internal derangement Not available 06/18/2018 12:51:50 Plan of Treatment Reminders Order Date Submit Date Provider Last Modified By Organization Details Last Modified Time Details Appointments None record ed. Lab None record ed. Referral None record ed. Procedures None record ed. Surgeries None record ed. Imaging XR, knee 018 04/17/20 18 [email or web address] In-Office Order, Internal Use Only DO Not Attach Compendium DO Not Attach Compendium, Do Not Delete/merge, [id number] 8 19:50:51 Medication Orders None record ed. Patient TargetsNo targets recorded. Patient Instructions Encounter Date Encounter Id Patient Instructions Last Modified By Organization Details Last Modified Time 07/26/2015 [id number] cervical spinal stenosis: care instructions [email or web address] Not available 09/08/2015 16:16:00 back care and preventing injuries: care instructions [email or web address] Not available 09/08/2015 16:16:00 getting back to normal after low back pain: care instructions [email or web address] Not available 09/08/2015 16:16:00 learning about relief for back pain [email or web address] Not available 09/08/2015 16:16:00 IMPRESSION AND PLAN: 1. ? Symptomatology of axial back pain which appears to be discogenic in etiology with most impressive pathology at L5-S1 and I would recommend a bilateral S1 transforaminal injection as the next step.? ? ? 2. ? The risks, benefits, and complications were discussed with her and her son at length.? ? ? I really do not see any reason to beverly into any additional imaging such as an MRI as my treatment would not change, as she does not have any tanya radicular component.? ? ? 3. ? All her questions were answered, and I will set her up for a lower lumbar transforaminal injection and she will be seen in the office in a follow-up. [email or web address] Not available 07/30/2015 00:03:50 08/03/2015 [id number] cervical spinal stenosis: care instructions [email or web address] Not available 09/08/2015 16:16:00 herniated disc: care instructions [email or web address] Not available 09/08/2015 16:16:00 08/17/2015 [id number] cervical spinal stenosis: care instructions [email or web address] Not available 09/08/2015 16:16:00 herniated disc: care instructions [email or web address] Not available 09/08/2015 16:16:00 06/12/2018 [id number] knee pain or injury: care instructions Not available 06/18/2018 12:52:09 We reviewed old x-rays in our system from March. She has moderate changes of the right patellofemoral compartment but joint spaces are rather well preserved on AP view. This may well be a symptomatic meniscus tear however I have advised a course of conservative management for now. I offered her a cortisone injection and she agreed. The patient tolerated the procedure well. I was unable to aspirate any fluid. I have advised that she call us in two to three weeks from now if she is still having pain and at that point we will refer her to Dr. Ashton for consideration of an arthroscopy. [email or web address] Not available 06/13/2018 15:52:06 Reason for Referral None Reported. Results Created Date Observation Date Name Description Value Unit Range Abnormal Flag Note LastModifiedBy Organization Detail LastModifiedTime 06/03/20 18 05/26/2018 MRI, knee, w/o contr ast No observ ation record ed. [email or web address] Not Available 2017 14:21:18 Result Notes None recorded. Problems Name Problem SNOMED Code Status Onset Date Resolution Date Notes Provider Name and Address Organization Details Recorded Time Sciatica 84926354 Active Not Available [facility] 3 03:01:10 Localized, primary osteoarthriti s 473246933 Active Roverto Nieves MD [address] [place], [address] [facility] 5 15:01:31 Back problem 727264030 Active Not Available [facility] 3 03:01:10 Joint pain 99790933 Active Not Available [facility] 3 03:01:10 Knee pain Active Not Available [facility] 3 03:01:10 Osteoarthriti s of knee 749043672 Active Not Available [facility] 3 03:01:10 Spinal stenosis of lumbar region 01206813 Active Robin Prado MD [address] [place], [address] , [facility] 5 17:50:33 Low back pain 239970885 Active Robin taylor MD [address] [place], [address] , [facility] 5 00:03:49 Degeneration of intervertebra l disc 44226360 Active Not Available [facility] 3 03:01:10 Skin sensation disturbance 65632219 Active Not Available [facility] 3 03:01:10 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 Procedures Surgical History Date Name Laterality Status Provider Name and Address Organization Details Recorded Time 06/12/20 18 (DJP) Injection Knee Cortisone with aspiration completed Mai Perez NP [address] [place], [address] 06/18/2018 12:50:46 08/17/20 15 Injection L/S Transforaminal SHANNA (1st Level-Bilateral) completed Robin Prado MD [address] [place], [address] 08/17/2015 17:50:33 08/03/20 15 Injection L/S Transforaminal SHANNA (1st Level-Bilateral) completed Robin Prado MD [address] [place], [address] 08/03/2015 17:50:51 04/21/20 15 [email or web address] Injection Knee cortisone no aspiration completed Roverto Nieves MD [address] [place], [address] 04/21/2015 15:01:32 Thyroid Surgery completed Yevgeniy Dumas [facility] 06/12/2018 14:44:19 Imaging Results Imaging Date Name Status LastModified by Organiz ation Details LastModified Time 05/26/2018 MRI, knee, w/o contrast completed [email or web address] Information not available 06/03/2018 14:21:18 Procedure Notes None recorded. Medical Equipment None Reported. Allergies No known drug allergies Medications Name Sig Start Date Stop Date Status Note LastModified by Organization Details LastModified Time quetiapine 25 mg tablet active Not Available Not Available Not Available latanoprost 0.005 % eye drops INSTILL 1 DROP INTO BOTH EYES AT BEDTIME active Not Available Not Available N ot Available atorvastatin 40 mg tablet active Not Available Not Available Not Available neomycin-mat ymyxin-hydro brad 3.5 mg/mL-10,000 unit/mL-1 % ear solution active Not Available Not Available Not Available venlafaxine ER 37.5 mg capsule,exte nded release 24 hr active Not Available Not Available Not Available prednisone 10 mg tablet active Not Available Not Available Not Available venlafaxine ER 75 mg capsule,exte nded release 24 hr active Not Available Not Available Not Available doxycycline hyclate 100 mg capsule active Not Available Not Available N ot Available atorvastatin 20 mg tablet active Not Available Not Available Not Available Pneumovax-23 25 mcg/0.5 mL injection solution TO BE ADMINISTERE D BY PHARMACIST FOR IMMUNIZATIO N active Not Available Not Available No t Available meloxicam 15 mg tablet Take 1 tablet every day by oral route. active Not Available Not Available No t Available clonazepam 0.5 mg tablet active Not Available Not Available Not Available sertraline 100 mg tablet active Not Available Not Available Not Available phentermine 15 mg capsule TAKE ONE CAPSULE EVERY MORNING active Not Available Not Available No t Available venlafaxine ER 150 mg capsule,exte nded release 24 hr active Not Available Not Available Not Available metronidazol e 500 mg tablet active Not Available Not Available Not Available ciprofloxaci n 500 mg tablet active Not Available Not Available Not Available quetiapine 100 mg tablet active Not Available Not Available Not Available phentermine 30 mg capsule TAKE 1 CAPSULE BY MOUTH EVERY DAY active Not Available Not Available No t Available oxycodone-ac etaminophen 5 mg-325 mg tablet active Not Available Not Available Not Available citalopram 20 mg tablet active Not Available Not Available Not Available cyanocobalam in (vit B-12) 500 mcg tablet TAKE 1 TABLET ONCE A DAY ORALLY 30 DAY(S) active Not Available Not Available No t Available brimonidine 0.2 % eye drops active Not Available Not Available Not Available zafirlukast 20 mg tablet active Not Available Not Available Not Available oxybutynin chloride ER 5 mg tablet,exten ded release 24 hr active Not Available Not Available Not Available omeprazole 20 mg capsule,nikita yed release active Not Available Not Available Not Available folic acid 1 mg tablet TAKE 1 TABLET ONCE A DAY ORALLY 30 DAY(S) active Not Available Not Available No t Available ergocalcifer ol (vitamin D2) 1,250 mcg (50,000 unit) capsule TAKE 1 CAPSULE BY MOUTH TWICE A WEEK active Not Available Not Available No t Available lorazepam 1 mg tablet active Not Available Not Available No t Available zolpidem 10 mg tablet active Not Available Not Available No t Available fluticasone propionate 50 mcg/actuatio n nasal spray,suspen alfonso active Not Available Not Available Not Available Daily Multiple tablet TAKE 1 TABLET EVERY DAY active Not Available Not Available No t Available dorzolamide 2 % eye drops active Not Available Not Available Not Available oxycodone 5 mg tablet active Not Available Not Available No t Available topiramate 50 mg tablet active Not Available Not Available Not Available Spiriva with HandiHaler 18 mcg and inhalation capsules active Not Available Not Available Not Available Zostavax (PF) 19,400 unit/0.65 mL subcutaneous suspension active Not Available Not Available N ot Available Chantix 1 mg tablet active Not Available Not Available Not Available ProAir HFA 90 mcg/actuatio n aerosol inhaler INHALE 2 PUFFS NEEDED EVERY 6 HOURS FOR INHALATION 90 DAYS active Not Available Not Available No t Available aripiprazole 2 mg tablet active Not Available Not Available Not Available Symbicort 160 mcg-4.5 mcg/actuatio n HFA aerosol inhaler INHALE 2 PUFFS TWICE A DAY FOR 90 DAYS active Not Available Not Available No t Available Artificial Tears (glycerin-pe g) 1 %-0.3 % eye drops INSTILL 1 DROP INTO BOTH EYES FOUR TIMES A DAY DIRECTED active Not Available Not Available No t Available Linzess 290 mcg capsule active Not Available Not Available Not Available Decara 1,250 mcg (50,000 unit) capsule TAKE 1 CAPSULE BY MOUTH EVERY MONTH active Not Available Not Available No t Available Afluria (PF ) 45 mcg (15 mcg x 3)/0.5 mL intramuscula r syringe TO BE ADMINISTERE D BY PHARMACIST FOR IMMUNIZATIO N active Not Available Not Available No t Available Vitals Date Recorded Body height Body mass index (BMI) Body weight Provider Name and Address Organization Details Last Updated DateTime 07/26/2015 152.4 cm 32.2 kg/m2 43061.35558 g fede ashby [place] - [facility] 07/26/2015 13:47:13 Date Recorded Body height Body mass index (BMI) Body weight Provider Name and Address Organization Details Last Updated DateTime 04/17/2018 152.4 cm 32.2 kg/m2 93684.74 g polly paco MD - [facility] 04/17/2018 14:21:20 Date Recorded Body height Body mass index (BMI) Body weight Provider Name and Address Organization Details Last Updated DateTime 06/12/2018 152.4 cm 31.1 kg/m2 56903.19 g Yevgeniy Dumas MD - [facility] 06/12/2018 14:43:41 Social History Question Answer Notes LastModified by Organizat ion Details LastModified Time Tobacco Smoking Status Current Every Day Smoker Cori aragon [place] - [facility] 10/30/2012 13:47:46 What Is Your Level Of Alcohol Consumption? None Information not available 10/30/2012 Auto Related Injury? No Information not available 10/30/2012 Are You Currently Employed? No ull Information not available 10/30/2012 Live Alone Or With Others? With Others Information not available 10/30/2012 Marital Status Informatio n not available 10/30/2012 What Was The Date Of Your Most Recent Tobacco Screening? 06/12/2018 Information not available 04/17/2019 If Injured, Is Litigation Ongoing? No ull Information not available 10/30/2012 How Much Tobacco Do You Smoke? 1 PPD Information not available 10/30/2012 Work Related Injury? No ull Information not available 10/30/2012 Sex: Unknown Functional Status None recorded. Mental Status None recorded. Family History Relationship Description Onset Age of this Age Resolved Age Notes LastModified by Organization Details LastModified Time Unspecified Relation Malignant neoplastic disease [email or web address] Not available 2017 14:43:57 Unspecified Relation Diabetes mellitus [email or web address] Not available 2017 14:44:02 Unspecified Relation Hypertensive disorder [email or web address] Not available 2017 14:44:07 Medical History Condition Response Depression Y Lung Disease Y Arthritis Y Asthma Y Gynecological HistoryNo gynecological history recorded. Obstetrics History GPAL:G 0 P 0 0 0 0 Past Encounters Encounter ID Performer Location Encounter Start Date Encounter Closed Date Diagnosis/Indication Diagnosis SNOMED-CT Code Diagnosis ICD10 Code Diagnosis Note [id number] [place] [address] [place] [address] 03/12/2007 10:06:02 03/12/2007 10:26:04 [id number] [place] [address] [address] [place] [address] 04/02/2007 13:32:23 04/02/2007 14:04:00 [id number] [place] [address] [place] [address] 05/28/2007 13:35:19 05/28/2007 13:57:26 [id number] [place] [address] [place] [address] 08/23/2011 08:57:53 08/23/2011 09:25:51 [id number] [place] [address] [place] [address] 08/23/2011 00:00:00 09/27/2011 03:30:43 [id number] [place] [address] [place] [address] 08/24/2011 07:42:17 08/24/2011 08:56:37 [id number] [place] [address] [place] [address] 09/06/2011 13:02:58 09/06/2011 13:23:16 [id number] [place] [address] [place] [address] 09/12/2011 14:21:25 09/12/2011 14:50:56 [id number] [place] [address] [place] [address] 09/12/2011 00:00:00 09/27/2011 03:30:43 [id number] [place] [address] [place] [address] 09/26/2011 12:22:05 09/26/2011 12:51:55 [id number] [place] [address] [place] [address] 09/26/2011 00:00:00 11/09/2011 03:30:32 [id number] [place] [address] [place] [address] 11/03/2011 13:05:38 11/03/2011 13:36:[id number] [place] [address] 11/03/2011 00:00:00 11/09/2011 03:30:[id number] [place] [address] 11/10/2011 11:28:00 11/10/2011 11:49:26 [id number] [place] [address] [place] [address] 11/23/2011 08:15:10 11/23/2011 08:27:16 [id number] Roverto Nieves MD [facility] [address] [place] [address] 10/30/2012 13:35:21 10/30/2012 14:06:05 [id number] [facility] Tamica encarn[facility] [address] [facility] [place] [address] 04/21/2015 14:03:19 04/21/2015 15:07:37 Localized, primary osteoarthritis [id number] MD [place] Jacinto [address] Gray [address] [place] [address] 07/26/2015 13:46:05 07/26/2015 14:00:13 Low back pain 272019451 M54.5 Degenerati on of lumbosacral intervertebral disc 30343966 M51.37 Spinal dennis nosis of lumbar region 64206103 M48.06 [id number] MD [place] Jacinto Kirstinkaren [address] [place] [address] 08/03/2015 13:20:35 08/03/2015 13:50:41 Displacement of lumbar intervertebral disc without myelopathy 11729857 M51.26 Degenerati on of lumbosacral intervertebral disc 73915767 M51.37 Spinal dennis nosis of lumbar region 98270306 M48.06 [id number] MD [place] Jacinto Terrietim alysha [address] [place] [address] 08/17/2015 13:40:08 08/17/2015 14:02:33 Displacement of lumbar intervertebral disc without myelopathy 86706558 M51.26 Degenerati on of lumbosacral intervertebral disc 75851695 M51.37 Spinal dennis nosis of lumbar region 92798936 M48.06 [id number] MD [place] Jean-Baptiste [address] [place] [address] 04/17/2018 13:57:44 04/17/2018 15:19:24 Localized, primary osteoarthritis 692774405 M19.91 [id number] MD [place] Palencia [address] [place] [address] 06/12/2018 14:39:10 06/17/2018 13:40:11 Knee pain 17983360 M25.561 Health Concerns Section Related Observation LastModified by Organization Detai ls LastModified Time None Recorded Concern Status LastModified by Organization Details LastModified Time None Recorded Advance Directives Directive None Recorded Payers Encounter Date Sequence Insurance Name Policy Number Policy Hayes Covered Member ID Hayes Member ID Guarantor Name 07/26/2015 2 [place] Anamika Pradhan [id number] Anamika Pradhan 07/26/2015 1 [place] [employer] Anamika Pradhan [id number] Anamika Pradhan 08/03/2015 2 [place] Anamika Pradhan [id number] Anamika Pradhan 08/03/2015 1 [place] [employer] Anamika Pradhan [id number] Anamika Pradhan 08/17/2015 2 [place] Anamika Pradhan [id number] Anamika Pradhan 08/17/2015 1 [place] Anamika Pradhan [id number] Anamika Pradhan 04/17/2018 2 [place] Anamika Pradhan [id number] Anamika Pradhan 04/17/2018 1 [place] [employer] Anamika Pradhan [id number] Anamika Pradhan 06/12/2018 2 [place] [facility] Anamika Pradhan [id number] Anamika Pradhan 06/12/2018 1 [place] [facility] Anamika Pradhan [id number] Anamika Pradhan Notes Date Note Type Note Provider Name and Address Organization Details Recorded Time 07/26/2015 text/html HPI Today I had the pleasure of evaluating Ms. Anamika Pradhan in a new patient office visit. Ms. Pradhan is a 69-year-old, right-hand dominant individual with a history of depression comes in with axial back pain. Anamika in fact is known to me from her visits dating back to several years ago when I had seen her predominately with back as well as left-sided leg pain. Her films had confirmed degenerative spondylotic changes at L5-S1 where she did have as expected foraminal compromise and she underwent a fluoroscopically guided left L5/S1 transforaminal injection with excellent resolution of her pre-injection complaints. Anamika indicates that she did well for over two years or so and off late, the discomfort seems to have increased quite a bit. She points to her entire lower lumbar region as the primary location of her complaints, which can range between 6-10/10 on the Visual Analog Scale. Sitting as well as standing and walking does seem to increase her complaints without any much radicular distribution. She denies any sensory complaints or any weakness. Her who used to bring her for doctor visits last year; hence, she could not come in until now. It is her son who brings her in today. ? Robin Prado MD [address] [place] [address], [address], [place] - [facility] 07/30/2015 00:04:44 04/17/2018 text/html [email or web address] KneeReport ed bypatient.History:Hist ory: Location:left; right Context:cannot identify (no particular injury) Severity:moderate Quality:not changing Timing:worse with activity Alleviating Factors:rest/activity restriction Aggravating Factors:going from sit to stand; bending/squatting Associated Symptoms:no weakness; no numbness; no tingling; no swelling; no redness; no warmth; no ecchymosis; no catching/locking; no popping/clicking; no buckling; no grinding; no instability; no radiation down leg; no drainage; no fever; no chills Previous Surgery:none Prior Imaging:none Previous Injections:helped temporarily Previous PT:none Left more than right knee pain and OA. Left knee cortisone 2014. Seen in past. Now more pain. No injury. Roverto Nieves MD [address] [facility], [place], [address], [facility] 04/17/2018 19:50:56 06/12/2018 text/html Anamika Pradhan gifty esents to see us for the first time. She is a very pleasant 72-year-old woman originally from [place] who comes in for evaluation of right knee pain. It has been bothering her for a couple of months. She recalls a fall when she was living in [place] this past summer. That seems to be the onset of pain. An MRI was obtained by her primary care physician which was suggestive of a medial meniscus tear. She describes the majority of her pain on the medial side of the knee. She describes instability and some anterior knee pain as well. She tries to avoid medications generally but will take an occasional ibuprofen or Aleve, which does help. She is accompanied today by her son who helps to translate for her. Bobby Ron MD [address] [facility], [place], [address], [facility] 06/20/2018 05:50:21 OBGyn Episode No OBEpisode recorded.
--- OUTSIDE RECORDS SUMMARY | 2025-01-06 16:23 | XMS_ITS | Clinical Summary ---
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 Name Role Phone Deborah Jaimes MD Primary Care Provider [phone] Medications lisinopriL (PRINIVIL,ZESTRIL ) 5 mg tablet TAKE 1 TABLET BY MOUTH ONCE DAILY 30 tablet 08/15/20 24 Active aspirin 81 mg EC tablet TAKE 1 TABLET BY MOUTH ONCE DAILY 30 tablet 08/15/20 24 Active blood sugar diagnostic (FreeStyle Lite Strips) test stripIndications: Type 2 diabetes mellitus without complications (CMS/[facility] V24, CMS/[facility] V28) USE TO TEST FINGER STICK BLOOD SUGAR BEFORE MEALS AND AT BEDTIME 100 strip 08/15/20 24 Active albuterol 2.5 mg /3 mL (0.083 %) nebulizer solutionIndicatio ns:Chronic obstructive pulmonary disease with (acute) exacerbation (CMS/HCC V24, CMS/[facility] V28) Take 3 mL (2.5 mg total) by nebulization 4 (four) times a day. 360 mL 09/29/19 25 Active alendronate (FOSAMAX) 70 mg tablet Take 1 tablet (70 mg total) by mouth every 7 (seven) days. 4 tablet 11/12/19 25 Active atorvastatin (LIPITOR) 20 mg tablet TAKE 1 TABLET BY MOUTH ONCE DAILY 30 tablet 12/31/19 25 Active Trulance 3 mg tablet TAKE 1 TABLET BY MOUTH ONCE DAILY 30 tablet 12/27/19 25 Active Surgical History Surgery Date Site/Laterality Comments BREAST LUMPECTOMY PROCEDURE: HISTORICAL BREAST LUMPECTOMY; COMMENT: Details unknown. Medical History Medical History Date Comments HTN (hypertension) 06/09/2022 DX:HTN (hyper tension) Diabetes mellitus ([facility] V 24, [facility] V28) 06/09/2022 DX:Diabetes mellitus (HCC) TIA (transient ischemic attack) 09/14/2022 DX:TIA (transient ischemic attack) Hyperlipidemia 06/09/2022 DX:Hyperlipidemi a Dementia ([facility] V24, [facility] V28) 06/09/2022 DX:Dementia (HCC) Major depression 06/09/2022 DX:Major depres alfonso Centrilobular emphysema ([facility] V24, [facility] V28) 07/31/2022 DX:Centrilobular emphysema ( HCC) Obesity (BMI 30-39.9) 06/13/2022 DX:Obesity (BMI 30-39.9) Insomnia 06/13/2022 DX:Insomnia Asthma 06/09/2022 DX:Asthma History of tobacco abuse 06/13/2022 DX:Hist ory of tobacco abuse Social History Tobacco Use Types Packs/Day Years Used Date Smoking Tobacco: Former Cigarettes 2 61.7 0 09/24/1960 - 06/24/2022 Smokeless Tobacco: Never Alcohol Use Standard Drinks/Week Comments Never 0 (1 standard drink = 0.6 oz pur e alcohol) Comments Unknown Sex and Gender Information Value Date Recorded Sex Assigned at Not on file Legal Sex Female 1:46 AM EST Gender Identity Not on file Sexual Orientation Not on file Obstetrics History Last Filed Vital Signs Vital Sign Reading Time Taken Comments Blood Pressure 140/76 10/29/2023 9:55 AM EST Pulse 66 10/29/2023 9:55 AM EST Temperature - - Respiratory Rate - - Oxygen Saturation - - Inhaled Oxygen Concentration - - Weight 67.1 kg (148 lb) 10/29/2023 9:55 AM EST Height 129.5 cm (4' 3 ) 10/19/2023 3:27 PM EST Body Mass Index 40.01 10/19/2023 3:27 PM EST Plan of Treatment Health Maintenance Due Date Last Done Comments Diabetes: Annual GFR (Glomerular Filtration Rate) 1945 Diabetes: Annual Foot Exam 11/29/1957 Diabetes: Annual Retina Eye Exam 11/29/1957 Zoster Vaccines (1 of 2) 11/29/1997 Cholesterol Screening (Lipid Panel) 09/03/2022 Depression Screening 09/03/2022 Diabetes: Annual Urine Albumin-Creatinine Ratio (uACR) 09/03/2022 Diabetes: Blood Sugar Control Test (HGBA1C) 09/03/2022 Falls Risk Assessment 09/03/2022 Hepatitis C Screening 09/03/2022 Hypertension/CHF/CAD Annual BMP Blood Test 09/03/2022 Medicare Annual Wellness Visit 09/03/2022 Social Influencers of Health Screening 09/03/2022 RSV Immunization Adult Patients (1 - 1-dose 75+ series) 11/29/2022 Lung Cancer Screening (Low Dose CT) 09/04/2023 09/04/2022 COVID-19 Vaccine ( season) 2024 02/12/2022, 10/10/2021, 2020, Additional history exists Influenza Vaccine (Season Ended) 2025 06/13/2022, 07/24/2019, 06/18/2018, Additional history exists DTaP,Tdap,and Td Vaccines (2 - Td or Tdap) 08/01/2032 08/01/2022 Osteoporosis Screening (Bone Density Screening) 12/20/2032 12/20/2022 Pneumococcal Vaccine: 50+ Years Completed 08/01/2022, 07/24/2019 Breast Cancer Screening Discontinued 12/20/2022 HIB Vaccines Aged Out No longer eligi ble based on patient's age to complete this topic HPV Vaccines Aged Out No longer eligi ble based on patient's age to complete this topic Hepatitis A Vaccines Aged Out No long er eligible based on patient's age to complete this topic Hepatitis B Vaccines Aged Out No long er eligible based on patient's age to complete this topic IPV Vaccines Aged Out No longer eligi ble based on patient's age to complete this topic MMR Vaccines Aged Out No longer eligi ble based on patient's age to complete this topic Meningococcal ACWY Vaccine Aged Out N o longer eligible based on patient's age to complete this topic Meningococcal B Vaccine Aged Out No l onger eligible based on patient's age to complete this topic RSV Immunization Patients Under 20 months Aged Out No longer eligible based on patient's age to complete this topic Varicella Vaccines Aged Out No longer eligible based on patient's age to complete this topic Procedures Procedure Name Priority Date/Time Associated Diagnosis Comments AVA SCREENING DIGITAL Routine 12/20/2022 4:05 PM EDT Encounter for screening mammogram for malignant neoplasm of breast AVA DEXA AXIAL SKELETON Routine 12/20/2022 8:54 AM EDT Age-related osteoporosis without current pathological fracture CT LUNG SCREENING LOW DOSE Routine 09/04/2022 2:36 PM EST Personal history of nicotine dependence from Last 3 Months or Most Recently Relevant to Health Maintenance Results * AVA SCREENING DIGITAL (12/20/2022 4:05 PM EDT) Anatomical Region Laterality Modality Mammography 12/19/2022 3:02 PM EDT Narrative 12/20/2022 4:05 PM EDT [facility] Diagnostic Imaging Department [address] [place] [address] Patient: ??ANAMIKA GUZMAN ?/Age/Sex: 1945 - 77 - F Unit#: ??[id number] ? Location/Status: ??SPDIMAM/REG CLI ? Mnemonic/Ordering Site: ??DIGSC/SPMAM Ordering Physician: ??DEBORAH JAIMES Ava Screening Digital - 12/19/22 - 7842 INDICATION: SCREENING COMPARISON: No prior studies are available for comparison. TECHNIQUE: CC and MLO views of the breasts were obtained, using full field digital mammography with 3D tomosynthesis views in the MLO projection. Anterior compression views of each breast in the CC projection with the nipples in profile Computer aided detection with the COSMIC COLOR 7.2-H was employed. FINDINGS: The breasts contain scattered fibroglandular tissues. Architectural distortion within the retroareolar region of right breast corresponds to overlying scar marker, in keeping with surgical history. Asymmetry within the left retroareolar region without evidence of outwardly convex mass or architectural distortion. No evidence of suspicious clustering microcalcification within either breast. Benign-appearing breast and vascular type calcifications are present bilaterally. IMPRESSION: ??Asymmetry in the left retroareolar region which may be normal in this patient who has undergone prior surgery in the right retroareolar region. However, in the absence of prior exams to establish long-term stability further evaluation with CC tomography and ultrasound of the left retroareolar/periareolar regions is recommended. Lack of an imaging correlate should not deter or delay biopsy of a clinically significant palpable finding. BI-RADS ??- Category 0 - Incomplete needs additional imaging evaluation. 3340F, 7025F (G0202 / [id number]) , ??[id number] Dictating Physician: ??JEAN CLAUDE MAURICE MD Electronically Signed by: ??JEAN CLAUDE MAURICE MD Dic Date/Time: ??12/20/22 1550 Sign date/Time: ??12/20/22 1605 Procedure Note Jean Claude Maurice MD - 10/26/2023 [facility] Diagnostic Imaging Department [address] [place] [address] [id number] Patient: GUZMAN,ANAMIKA /Age/Sex: 1945 - 77 - F Unit#: [id number] Location/Status: [facility] CLI Mnemonic/Ordering Site: [facility] Ordering Physician: DEBORAH JAIMES Ava Screening Digital - 12/19/22 - 1554 INDICATION: SCREENING COMPARISON: No prior studies are available for comparison. TECHNIQUE: CC and MLO views of the breasts were obtained, using full field digital mammography with 3D tomosynthesis views in the MLO projection. Anterior compression views of each breast in the CC projection with the nipplesin profile Computer aided detection with the COSMIC COLOR 7.2-H was employed. FINDINGS: The breasts contain scattered fibroglandular tissues. Architectural distortion within the retroareolar region of right breast corresponds to overlying scar marker, in keeping with surgical history. Asymmetry within the left retroareolar region without evidence ofoutwardly convex mass or architectural distortion. No evidence of suspicious clustering microcalcification within eitherbreast. Benign-appearing breast and vascular type calcifications are present bilaterally. IMPRESSION: Asymmetry in the left retroareolar region which may be normalin this patient who has undergone prior surgery in the right retroareolarregion. However, in the absence of prior exams to establish long-term stabilityfurther evaluation with CC tomography and ultrasound of the left retroareolar/periareolar regions is recommended. Lack of an imaging correlate should not deter or delay biopsy of aclinically significant palpable finding. BI-RADS - Category 0 - Incomplete needs additional imaging evaluation.3340F, 7025F (G0202 / [id number]) , [id number] Dictating Physician: JEAN CLAUDE MAURICE MD Electronically Signed by: JEAN CLAUDE MAURICE MD Dic Date/Time: 12/20/22 7488 Sign date/Time: 12/20/22 1604 Deborah Jaimes MD IMG BI PROCEDURES Final Result * AVA DEXA AXIAL SKELETON (12/20/2022 8:54 AM EDT) Anatomical Region Laterality Modality Mammography 12/19/2022 3:02 PM EDT Narrative 12/20/2022 8:54 AM EDT [facility] Diagnostic Imaging Department [address] [place] [id number] Patient: ??ANAMIKA GUZMAN ?/Age/Sex: 1945 - Unit#: ??[id number] ? Location/Status: ??SPDIMAM/REG CLI ? Mnemonic/Ordering Site: ??MAMDEXAAX/SPMAM Ordering Physician: ??CLIFF JAIMES Ava Dexa Axial Skeleton - 12/19/221531 HISTORY: ??The patient is a 77-year-old postmenopausal female with clinical concern for metabolic bone disease. FINDINGS: ??Dual energy x-ray absorptiometry of the lumbar spine and femurs is performed. The mean bone mineral density at L2-4 is 0.766 gm/cm2 which is 64% of that of young normals and 76% of that of age matched controls. This yields a T- score of -3.6 and a Z-score of -2.1 which is diagnostic of osteoporosis. The mean bone mineral density of the femurs bilaterally is 0.903 gm/cm2 which is 90% of that of young normals and 112% of that of age matched controls. ??This yields a T-score of -0.8 and a Z-score of 0.8 and there is therefore no evidence of osteoporosis or osteopenia here. ??However, the T-score of the right femoral neck is -2.2 and that of the left femoral neck is -2.1 which is diagnostic of osteoporosis. IMPRESSION: 1. Osteoporosis. 2. FRAX analysis yields a 10-year probability of major osteoporotic fracture of 12.1% and a 10-year probability of hip fracture of 3.6%. Code 67881 Dictating Physician: ??KANDACE MEDRANO MD Electronically Signed by: ??KANDACE MEDRANO MD Dic Date/Time: ??12/20/2253 Sign date/Time: ??12/20/22 0854 Procedure Note Kandace Medrano MD - 10/26/2023 [facility] Diagnostic Imaging Department [address] [place] [address] Patient: GUZMAN,ANAMIKA Claire./Age/Sex: 1945 - 77 - F Unit#: [id number] Location/Status: [facility] Mnemonic/Ordering Site: [facility] Ordering Physician: CLIFF JAIMES [facility] Dexa Axial Skeleton - 12/19/221531 HISTORY: The patient is a 77-year-old postmenopausal female withclinical concern for metabolic bone disease. FINDINGS: Dual energy x-ray absorptiometry of the lumbar spine and femursis performed. The mean bone mineral density at L2-4 is 0.766 gm/cm2 which is64% of that of young normals and 76% of that of age matched controls. This yieldsa T- score of -3.6 and a Z-score of -2.1 which is diagnostic of osteoporosis. The mean bone mineral density of the femurs bilaterally is 0.903 gm/ja2katzt is 90% of that of young normals and 112% of that of age matched controls.This yields a T-score of -0.8 and a Z-score of 0.8 and there is therefore noevidence of osteoporosis or osteopenia here. However, the T-score of the rightfemoral neck is -2.2 and that of the left femoral neck is -2.1 which is diagnosticof osteoporosis. IMPRESSION: 1. Osteoporosis. 2. FRAX analysis yields a 10-year probability of major osteoporoticfracture of 12.1% and a 10-year probability of hip fracture of 3.6%. Code 18929 Dictating Physician: KANDACE MEDRANO MD Electronically Signed by: KANDACE MEDRANO MD Dic Date/Time: 12/20/22 0853 Sign date/Time: 12/20/22 0854 Cliff Jaimes MD IM BI PROCEDURES Final Result * CT LUNG SCREENING LOW DOSE (09/04/2022 2:36 PM EST) Anatomical Region Laterality Modality Computed Tomogra phy 09/04/2022 10:2 4 AM EST Narrative 09/04/2022 2:36 PM EST [facility] Diagnostic Imaging Department [address] [place] [address] Patient: ??ANAMIKA GUZMAN ?/Age/Sex: 1945 - Unit#: ??[id number] ? Location/Status: ??SPDICATLS/REG CLI ? Mnemonic/Ordering Site: ??CTLUNGLD/SPCT Ordering Physician: ??JSEE WHITE MD CT Lung Screening Low Dose - 09/04/22 - 1035 HISTORY: Former smoker, 60.5 pack year total. COMMENTS: Noncontrast Chest CT examination includes axial imaging from the lung apices through the hemidiaphragms supplemented with coronal and sagittal reformatted images utilizing low-dose screening technique (GE, 164.07 DLP (mGy-cm), CT utilizing dose reduction technique with automated exposure control based on patient size or use of iterative reconstruction technique). ??Patient respiratory motion artifact. No prior Chest CT examination available for direct comparison. Breast asymmetry, up to approximately 2.4 x 2.4 x 2.4 cm left breast retroareolar soft tissue attenuation; mammography correlation recommended to exclude pathology if not already known. Cardiac size within normal limits. ??Coronary artery calcifications. Thoracic aorta ectasia and calcifications. No pericardial effusion, pleural effusion, pneumothorax. No gross thoracic lymphadenopathy by noncontrast CT analysis. Emphysema and bronchial wall thickening (bronchitis). Scattered areas of subcentimeter atelectasis/scarring without focal alveolar consolidation. ??No dominant pulmonary mass. Right lower lobe calcified nodule (granuloma). Multilevel thoracolumbar interspinous calcification. Cholelithiasis. IMPRESSION: Breast asymmetry; mammography correlation recommended. Emphysema. G0297 G9637 G9551 G9557 Lung RADS: Category 1S CT Telerad Dictating Physician: ??JONAH NGO DO Electronically Signed by: ??JONAH NGO DO Dic Date/Time: ??09/04/22 1413 Sign date/Time: ??09/04/22 1436 Procedure Note Jonah Ngo, - 10/26/2023 [facility] Diagnostic Imaging Department [address] [place] [address] Patient: ANAMIKA GUZMAN /Age/Sex: 1945 - 76 - F Unit#: [id number] Location/Status: SPDICATLS/REG CLI Mnemonic/Ordering Site: CTLUNGLD/SPCT Ordering Physician: JESE WHITE MD CT Lung Screening Low Dose - 09/04/22 - 1034 HISTORY: Former smoker, 60.5 pack year total. COMMENTS: Noncontrast Chest CT examination includes axial imaging from the lungapices through the hemidiaphragms supplemented with coronal and sagittalreformatted images utilizing low-dose screening technique ([employer], 164.07 DLP (mGy-cm),CT utilizing dose reduction technique with automated exposure control basedon patient size or use of iterative reconstruction technique). Patientrespiratory motion artifact. No prior Chest CT examination available for direct comparison. Breast asymmetry, up to approximately 2.4 x 2.4 x 2.4 cm left breast retroareolar soft tissue attenuation; mammography correlation recommendedto exclude pathology if not already known. Cardiac size within normal limits. Coronary artery calcifications. Thoracic aorta ectasia and calcifications. No pericardial effusion, pleural effusion, pneumothorax. No gross thoracic lymphadenopathy by noncontrast CT analysis. Emphysema and bronchial wall thickening (bronchitis). Scattered areas of subcentimeter atelectasis/scarring without focalalveolar consolidation. No dominant pulmonary mass. Right lower lobe calcified nodule (granuloma). Multilevel thoracolumbar interspinous calcification. Cholelithiasis. IMPRESSION: Breast asymmetry; mammography correlation recommended. Emphysema. G0297 G9637 G9551 G9557 Lung RADS: Category 1S CT Telerad Dictating Physician: JONAH NGO DO Electronically Signed by: JONAH NGO DO Dic Date/Time: 09/04/22 1413 Sign date/Time: 09/04/22 1436 Jese White MD IMG CT PROCEDURES Final Result from Last 3 Months or Most Recently Relevant to Health Maintenance Insurance [employer] Member Subscriber Plan / Payer (Ef fective 2022-Present) Name:Guzman, Anamika Relation to Subscriber:Self Name:Anamika Guzman Payer ID:[id number] Group ID:[id number] Type:Not on file Address: [place] [address] [address] [id number] Care Teams Drainage Engineer Relationship Specialty Start Date End Date Deborah Jaimes MD [address] [place] [phone] PCP - General 09/07/22
== END 2025-01-06 14:29 | disposition home or self-care (01) ==
LOC: HO.HSMS 13:26
PROVIDERS: PCP Internal Medicine; Visit Provider Nurse Practitioner Family
DX: F03.90 Unspecified dementia, unspecified severity, without behavioral disturbance, psychotic disturbance, mood disturbance, and anxiety (principal); G47.33 Obstructive sleep apnea (adult) (pediatric)
CPT/HCPCS: 99214

== ENCOUNTER → 2025-01-06 13:26 | Outpatient (BNVA) | payer OTHER, SELFPAY | PROVIDERS: PCP Internal Medicine; Visit Provider Nurse Practitioner Family | DX: G47.33 Obstructive sleep apnea (adult) (pediatric) (principal); F03.90 Unspecified dementia, unspecified severity, without behavioral disturbance, psychotic disturbance, mood disturbance, and anxiety; Z99.89 Dependence on other enabling machines and devices; Z91.199 Patient's noncompliance with other medical treatment and regimen due to unspecified reason | CPT/HCPCS: 99212 ==